=== PATIENT | female | born 1970 | race Asian ===

== ENCOUNTER 2017-01-24 20:08 | Emergency (ER) | payer OTHER ==
[~2017-01-24] VITALS: Ht 175.3 cm; Wt 86.2 kg
[~2017-01-24 20:08] MED LIST: GLIP10TA55 PO; METF500T PO
[2017-01-24 20:20] VITALS: BP 143/92; TEMP 98.2
== END 2017-01-24 21:04 | disposition home or self-care (01) ==
LOC: ED 20:08
DX: H61.20 Impacted cerumen, unspecified ear (principal)
CPT/HCPCS: 99281

== ENCOUNTER 2020-01-21 22:58 | Emergency (ER) | payer BC ==
[~2020-01-21] VITALS: Ht 175.3 cm; Wt 68.0 kg
[2020-01-22 00:27] LABS: PLATELET COUNT 244 K/uL (152-353)
[2020-01-22 00:30] LABS: POTASSIUM 4.2 mmol/L (3.6-5.2); SODIUM 139 mmol/L (136-145)
[2020-01-22 00:39] LABS: PARTIAL THROMBOPLASTIN TIME 23.9 SECONDS (24.5-33.6)
[2020-01-22 03:25] VITALS: BP 149/80; TEMP 98.7
== END 2020-01-22 03:25 | disposition home or self-care (01) ==
LOC: ED 22:58
PROVIDERS: Family Medicine
DX: R07.89 Other chest pain (principal); E11.65 Type 2 diabetes mellitus with hyperglycemia; S46.812A Strain of other muscles, fascia and tendons at shoulder and upper arm level, left arm, initial encounter; X50.0XXA Overexertion from strenuous movement or load, initial encounter; Y92.89 Other specified places as the place of occurrence of the external cause
CPT/HCPCS: 36415; 80053; 81000; 82550; 82553; 83735; 84484; 85027; 85379; 85610; 85730; 93005; 96372; 99283; J1815; J1885